=== PATIENT | male | born 1990 | race Caucasian/White ===

== ENCOUNTER 2017-03-19 20:22 | Emergency (ER) | payer OTHER ==
[2017-03-19 20:31] VITALS: BP 131/86; TEMP 98.2; BMI 22.4
--- NOTE | 2017-03-19 20:56 | ED.PDOC ---
General ED Provider: Dr. DARYA HUTTON Chief Complaint: Back Pain Stated Complaint: Lower left back pain. Goes down left leg. No spacific injury but has been doing a lot of lifting and bending. Time Seen by Physician: 20:50 Mode of Arrival: Walk-In Information Source: Patient Exam Limitations: No limitations Nursing and Triage Documentation Reviewed and Agree: Yes Musculoskeletal Complaint Exam - Back Pain Complaint/Exam Mechanism of Injury: Reports: No known trauma Onset/Duration: 1 day Symptoms Are: Still present Timing: Constant Episodes Lasting: Seconds Initial Severity: Severe Current Severity: Severe Location: Reports: Discrete Character: Reports: Aching, Throbbing Aggravating: Reports: Movements, Lifting, Bending, Walking Related History: Reports: Occupational injury TAD Risk Factors: Reports: None AAA Risk Factors: Reports: None Cauda Equina Risk Factors: Reports: None Epidural Abcess Risk Factors: Reports: None Related Surgical History: Reports: None Focal Tenderness: Yes (left lower back) Paraspinal Muscle Tenderness: Yes Paraspinal Muscle Spasm: Yes Scoliosis: No Lordosis: No Kyphosis: No SLR Test: Left Positive Hip Motion Testing Pain: Right Negative, Left Negative Focal Weakness: Present: None Focal Sensory Loss: Present: None Gait: Present: Abnormal Back Picture: 1 - pain 2 - radiation of pain Differential Diagnoses: Fracture, Herniated Disk, Strain, Sprain Review of Systems - Review Of Systems Constitutional: Reports: No symptoms Eyes: Reports: No symptoms Ears, Nose, Mouth, Throat: Reports: No symptoms Respiratory: Reports: No symptoms Cardiac: Reports: No symptoms GI: Reports: No symptoms : Reports: No symptoms Musculoskeletal: Reports: Back pain, Muscle pain, Muscle stiffness Skin: Reports: No symptoms Neurological: Reports: Anxiety Endocrine: Reports: No symptoms Hematologic/Lymphatic: Reports: No symptoms All Other Systems: Reviewed and Negative Past Medical History - Past Medical History Previously Healthy: Yes Endocrine: Reports: None Cardiovascular: Reports: None Respiratory: Reports: None Hematological: Reports: None Gastrointestinal: Reports: None Genitourinary: Reports: None Neuro/Psych: Reports: None Musculoskeletal: Reports: Back Pain, Joint Pain Cancer: Reports: None - Surgical History General Surgical History: Reports: None - Family History Family History: Reports: None - Social History Smoking Status: Current every day smoker, Heavy tobacco smoker Hx Substance Use: No Alcohol Screening: Occasionally - Immunizations Tetanus Shot up to Date: Yes Physical Exam - Physical Exam Appearance: Ill-appearing, Well-nourished Ill-appearing: Mild Pain Distress: Severe Neck: Supple Respiratory: Airway patent, Breath sounds clear, Breath sounds equal, Respirations nonlabored Cardiovascular: RRR, Pulses normal, No rub, No murmur GI/: Soft, Nontender, No masses Musculoskeletal: No edema, Limited ROM (of the back and left leg extension ) Neurological: Sensation intact, Reflexes intact, Alert Psychiatric: Anxious Interpretation - Radiology Interpretation Radiology Interpretation By: ED Physician Radiology Results: Negative (for fracture but loss of lumbar lordosis.) Exam Interpreted: Other (LS spine ) Re-Evaluation - Re-Evaluation Time of Re-Evaluation: 21:38 Status: Improved Pain Level: much better Critical Care Note - Critical Care Note Total Time (mins): 0 Course - Course Orders, Labs, Meds: Orders Category Date Time Status Meperidine HCl/Pf [Demerol 50 mg/ml Syringe] MEDS 03/19/17 20:58 Discontinued 50 mg IM ONCE STA Promethazine HCl [Phenergan 25 mg/ml Vial] MEDS 03/19/17 20:58 Discontinued 25 mg IM ONCE STA LUMBAR SPINE, 2 OR 3 VIEWS Stat RADS 03/19/17 20:58 Taken Medications Discontinued Medications Generic Name Dose Route Start Last Admin Trade Name Freq PRN Reason Stop Dose Admin Meperidine HCl 50 mg 03/19/17 20:58 03/19/17 21:08 Demerol 50 Mg/Ml Syringe IM 03/19/17 20:59 50 mg ONCE STA Administration Promethazine HCl 25 mg 03/19/17 20:58 03/19/17 21:05 Phenergan 25 Mg/Ml Vial IM 03/19/17 20:59 25 mg ONCE STA Administration Vital Signs: Temp Pulse Resp BP Pulse Ox 03/19/17 20:23 98.2 F 64 16 131/86 98 Departure - Departure Time of Disposition: 21:30 Disposition: HOME SELF-CARE Discharge Problem: Backache Instructions: Lower Back Exercises (ED) Condition: Fair Pt referred to PMD for follow-up: Yes Additional Instructions: Take pain Medications as prescribed Follow up with PCP in 3 days Rest for 3 days Prescriptions: Hydrocodone/Acetaminophen [[place] 5-325 Tablet] 1 tab PO Q6HR PRN #14 tablet PRN Reason: PAIN Cyclobenzaprine HCl [Flexeril] 5 mg PO TID PRN #14 tablet PRN Reason: Spasms Ibuprofen [Motrin] 600 mg PO Q6H PRN #30 tablet PRN Reason: Analgesia Allergies/Adverse Reactions: Allergies Iodinated Contrast- Oral and IV Dye [Iodinated Contrast Media - IV Dye] Adverse Reaction (Verified 03/19/17 20:30) Hives Home Medications: Ambulatory Orders 1 [No Reported Medications] 0 mg PO DAILY 01/21/13 Cyclobenzaprine HCl [Flexeril] 5 mg PO TID PRN #14 tablet 03/19/17 Hydrocodone/Acetaminophen [[place] 5-325 Tablet] 1 tab PO Q6HR PRN #14 tablet Ibuprofen [Motrin] 600 mg PO Q6H PRN #30 tablet 03/19/17 Disposition Discussed With: Patient, Family
[2017-03-19] MEDS ORDERED: DEMEROL 50 MG/ML SYRINGE IM STA (20:58)
[2017-03-19] MEDS ORDERED: PHENERGAN 25 MG/ML VIAL IM STA (20:58)
--- NOTE | 2017-03-20 11:25 | DI ---
EXAM: Lumbar spine three view. HISTORY: Back pain with radiculopathy. Comparison: 08/24/2010. Findings: There is normal appearing AP lumbar spinal alignment seen. There is approximately 4 mm grade 1 ante rolisthesis of L5 on S1 present. There is a lucency seen in the distribution of the L5 pars interar ticularis. There is mild intervertebral disc height loss at the L5 - S1 level suggestive of mild de generative disc disease. Impression: 1. Approximately 4 mm grade 1 anterolisthesis of L5 on S1. 2. Lucency seen in the region the L5 pars interarticularis. Recommend correlation with either CT chza mbar spine or oblique views of the lumbar spine follow-up to better assess for pars defect as the ca use for this finding. 3. Mild degenerative disc disease seen at the L5 - S1 level.
== END 2017-03-19 21:38 | disposition home or self-care (01) ==
LOC: ED 20:22
DX: M54.5 Low back pain (principal); F17.210 Nicotine dependence, cigarettes, uncomplicated
CPT/HCPCS: 96372; 99282

== ENCOUNTER 2017-05-04 13:19 | Emergency (ER) ==
[2017-05-04 13:22] VITALS: BP 132/76; TEMP 96.6; BMI 20.2
--- NOTE | 2017-05-04 15:03 | ED.PDOC ---
General ED Provider: Dr. REBECCA MEDRANO Chief Complaint: Respiratory Complaint Stated Complaint: Woke up with pain with breathing through out both lungs. Minimal, [employer] cough also hurts. No SOB. No wheezing. Zahl fine yesterday. Time Seen by Physician: 15:04 Mode of Arrival: Walk-In Information Source: Patient Exam Limitations: No limitations Nursing and Triage Documentation Reviewed and Agree: Yes Respiratory Complaint Exam - Respiratory Complaint/Exam Onset/Duration: this AM upon awakening Symptoms Are: Still present Timing: Constant Initial Severity: Moderate Current Severity: Moderate Location: Chest Character: Reports: Non-productive cough Aggravating: Reports: Deep breaths Alleviating: Reports: None Associated Signs and Symptoms: Reports: Pleuritic chest pain History of Healthcare-Acquired Pneumonia: No Related Surgical History: Reports: None Pulmonary Embolism Risk Factors: Smoking Cardiac Risk Factors: Reports: Smoking Pseudomonas Risk Factors: Reports: None Tuberculosis Risk Factors: Reports: Smoking Status Asthmaticus Risk Factors: Reports: None Home Oxygen Use: No Recent Stress Test: No Recent Echo/LV Function: No Current Antibiotic Use: No Current Asthma Medication Use: No Respiratory Distress: None Inadequate Respiratory Effort: No Dysphagia Present: No Stridor Present: No JVD Present: No Accessory Muscle Use: No Retractions: Not Present Diminished Breath Sounds: No Sinus Tenderness: None Grunting Respirations: No Kussmaul Respirations: No Differential Diagnoses: Pneumonia, Bronchitis, Lower Resp. Infection, Other ( Pleurisy) Quality Indicators For Pneumonia: SpO2 assessed, Vital signs, Mental status assessed Review of Systems - Review Of Systems Constitutional: Reports: No symptoms Eyes: Reports: No symptoms Ears, Nose, Mouth, Throat: Reports: No symptoms Respiratory: Reports: Cough, Other (pleuritic chest pain with breathing, worse with deep breath or cough) Cardiac: Reports: No symptoms GI: Reports: No symptoms : Reports: No symptoms Musculoskeletal: Reports: No symptoms Skin: Reports: No symptoms Neurological: Reports: No symptoms All Other Systems: Reviewed and Negative Past Medical History - Past Medical History Previously Healthy: Yes Endocrine: Reports: None Cardiovascular: Reports: None Respiratory: Reports: None Hematological: Reports: None Gastrointestinal: Reports: None Genitourinary: Reports: None Neuro/Psych: Reports: None Musculoskeletal: Reports: Back Pain, Joint Pain Cancer: Reports: None - Surgical History General Surgical History: Reports: None - Family History Family History: Reports: None - Social History Smoking Status: Current every day smoker, Heavy tobacco smoker Amount Smokes or Chewing Tobacco Used Daily: 1 PPD Smoking Cessation Counseling Time: > 3 min - 10 min Hx Substance Use: No Alcohol Screening: Heavy Lives: Alone, With family - Immunizations Tetanus Shot up to Date: No Influenza Vaccine within 12 Months: No Pneumococcal Vaccine up to Date: No Physical Exam - Physical Exam Appearance: Well-appearing, No pain distress, Well-nourished Ill-appearing: None Pain Distress: None ENT: Ears normal, Nose normal, Oropharynx normal Neck: Supple Respiratory: Airway patent, Breath sounds clear, Breath sounds equal, Respirations nonlabored Cardiovascular: RRR, Pulses normal, No rub, No murmur GI/: Soft, Nontender, No masses, Bowel sounds normal, No Organomegaly Musculoskeletal: Normal strength, ROM intact, No edema, No calf tenderness Skin: Warm, Dry, Normal color Neurological: Sensation intact, Motor intact, Reflexes intact, Cranial nerves intact, Alert, Oriented Critical Care Note - Critical Care Note Total Time (mins): 0 Course - Course Vital Signs: Temp Pulse Resp BP Pulse Ox 05/04/17 13:19 96.6 F L 70 18 132/76 98 Departure - Departure Time of Disposition: 15:26 Disposition: HOME SELF-CARE Discharge Problem: Pleurisy, Bronchitis Discharge Problem: (Ruled Out): The administrative codes within the [employer] content you are accessing may have as of 05/02/2017. Please contact your IT Dept/Help Desk and request the latest Regulatory release be installed. IT Dept/Help Desk- Please refer to our FAQ page ([email or web address]) or contact [facility] Support at [email or web address] Instructions: Acute Bronchitis (ED), Pleurisy (ED) Condition: Good Pt referred to PMD for follow-up: No (If no better in 3 days, see doctor) Allergies/Adverse Reactions: Allergies Iodinated Contrast- Oral and IV Dye [Iodinated Contrast Media - IV Dye] Adverse Reaction (Verified 05/04/17 13:22) Hives Home Medications: Ambulatory Orders 1 [No Reported Medications] 0 mg PO DAILY 01/21/13 Acetaminophen with Codeine [Tylenol #3 Tab] 1 tab PO Q4H PRN #20 tablet Azithromycin [Zithromax] 500 mg PO DAILY #5 tablet 05/04/17 Disposition Discussed With: Patient
== END 2017-05-04 15:33 | disposition home or self-care (01) ==
LOC: ED 13:19
DX: J20.9 Acute bronchitis, unspecified (principal); R09.1 Pleurisy; F17.210 Nicotine dependence, cigarettes, uncomplicated
CPT/HCPCS: 99282

== ENCOUNTER 2017-08-16 20:24 | Outpatient (CLI) ==
[2013-01-21 13:50] VITALS: TEMP 98.9
[2017-08-16 20:37] VITALS: BMI 20.2
== END 2017-08-16 20:25 | disposition critical access hospital (66) ==
LOC: AMBL 20:24
PROVIDERS: ATTEND Emergency Medicine
DX: R10.30 Lower abdominal pain, unspecified (principal); K62.5 Hemorrhage of anus and rectum

== ENCOUNTER 2017-08-16 20:37 | Emergency (ER) ==
[2017-08-16 20:37] VITALS: BMI 20.2
[2017-08-16 20:53] VITALS: TEMP 98.1
--- NOTE | 2017-08-16 20:58 | ED.PDOC ---
General ED Provider: Dr. NIRMALA VAZQUEZ Chief Complaint: Abdominal Pain Stated Complaint: Been hurting since noo, lower abdomen, no nausea or vomiting. has some blood in stools. Time Seen by Physician: 20:56 Mode of Arrival: Ambulance Information Source: Patient Nursing and Triage Documentation Reviewed and Agree: Yes Reviewed sepsis parameters & appropriate labs ordered?: No System Inflammatory Response Syndrome: Not Applicable Sepsis Protocol: For patient's 13 years and over: Temp is 96.8 and below OR 101 and greater Pulse >90 BPM Resp >20/minute Acutely Altered Mental Status Are patient's symptoms suggestive of a new infection, such as: -Pneumonia -Skin, Soft Tissue -Endocarditis -UTI -Bone, Joint Infection -Implantable Device -Acute Abdominal Infection -Wound Infection -Meningitis -Blood Stream Catheter Infection -Unknown GI Complaint Exam - Abdominal Pain Complaint/Exam Onset: Gradual Symptoms Are: Still present Timing: Constant Initial Severity: Moderate Current Severity: Moderate Location of Pain: Suprapubic Character: Reports: Aching, Throbbing Aggravating: Reports: None Alleviating: Reports: None Associated Signs and Symptoms: Denies: Diaphoresis, Fever, Cough, Chest pain, Dizziness, Back pain, Constipation, Blood in stool, Dysuria, Urinary frequency, Decreased urine output, Decreased appetite, Discharge, Nausea, Vomiting, Diarrhea, Decreased activity AAA Risk Factors: Reports: None Cardiac Risk Factors: Reports: None Testicular Torsion Risk Factors: Reports: None Surgical Obstruction Risk Factors: Reports: None Related Surgical History: Reports: None Abdominal Findings: Absent: Pulsatile mass, Abdominal distention, Unequal femoral pulses Differential Diagnoses: Constipation, Pancreatitis, UTI Review of Systems - Review Of Systems Constitutional: Reports: No symptoms Eyes: Reports: No symptoms Ears, Nose, Mouth, Throat: Reports: No symptoms Respiratory: Reports: No symptoms Cardiac: Reports: No symptoms GI: Reports: Abdomen distended, Abdominal pain : Reports: No symptoms Musculoskeletal: Reports: No symptoms Skin: Reports: No symptoms Neurological: Reports: No symptoms Endocrine: Reports: No symptoms Hematologic/Lymphatic: Reports: No symptoms All Other Systems: Reviewed and Negative Past Medical History - Past Medical History Previously Healthy: Yes Endocrine: Reports: None Cardiovascular: Reports: None Respiratory: Reports: None Hematological: Reports: None Gastrointestinal: Reports: None Genitourinary: Reports: None Neuro/Psych: Reports: None Musculoskeletal: Reports: Back Pain, Joint Pain Cancer: Reports: None - Surgical History General Surgical History: Reports: None - Family History Family History: Reports: None - Social History Smoking Status: Current every day smoker, Heavy tobacco smoker Smoking Cessation Counseling Time: > 10 min Hx Substance Use: No (says stopped drinking alcohol 2 weeks ago) Alcohol Screening: None - Immunizations Tetanus Shot up to Date: No (unknown) Influenza Vaccine within 12 Months: No Pneumococcal Vaccine up to Date: No Physical Exam - Physical Exam Appearance: Ill-appearing, Thin Eyes: ANIVAL, EOMI, Conjunctiva clear ENT: Ears normal, Nose normal, Oropharynx normal Respiratory: Airway patent, Breath sounds clear, Breath sounds equal, Respirations nonlabored Cardiovascular: RRR, Pulses normal, No rub, No murmur GI/: Soft, Tender Musculoskeletal: Normal strength, ROM intact, No edema, No calf tenderness Skin: Warm, Dry, Normal color Neurological: Sensation intact, Motor intact, Reflexes intact, Cranial nerves intact, Alert, Oriented Psychiatric: Affect appropriate, Mood appropriate Interpretation - Radiology Interpretation Radiology Interpretation By: Radiologist Radiology Results: Positive Exam Interpreted: CT Scan Critical Care Note - Critical Care Note Total Time (mins): 20 Course - Course Hematology/Chemistry: 08/16/17 21:00 08/16/17 21:00 Orders, Labs, Meds: Lab Review 08/16/17 08/16/17 21:00 21:00 WBC 11.42 H RBC 5.16 Hgb 15.0 Hct 43.2 MCV 83.7 MCH 29.1 MCHC 34.7 RDW Coeff of Prosper 11.5 L Plt Count 293 Immature Gran % (Auto) 0.4 Neut % (Auto) 78.5 Lymph % (Auto) 11.5 [place] % (Auto) 7.7 Eos % (Auto) 1.6 Baso % (Auto) 0.3 Immature Gran # (Auto) 0.0 Neut # 9.0 H Lymph # 1.3 [place] # 0.9 Eos # 0.2 Baso # 0.0 Sodium 137 Potassium 3.9 Chloride 102 Carbon Dioxide 28 Anion Gap 10.9 BUN 9 Creatinine 1.00 Estimated GFR (MDRD) 90.00 BUN/Creatinine Ratio 9.00 Glucose 112 H Calcium 9.9 Total Bilirubin 1.1 AST 16 ALT 12 Alkaline Phosphatase 80 Total Protein 7.3 Albumin 4.1 Globulin 3.2 Albumin/Globulin Ratio 1.28 Amylase 33 Lipase 7 L Orders Category Date Time Status AMYLASE Stat LAB 08/16/17 21:00 Completed CBC W/ AUTO DIFF Stat LAB 08/16/17 21:00 Completed COMPREHENSIVE METABOLIC PANEL Stat LAB 08/16/17 21:00 Completed LIPASE Stat LAB 08/16/17 21:00 Completed UA [URINALYSIS C & S IF INDICATED] Stat LAB 08/16/17 20:[address] ABDOMEN/PELVIS WO CONTRAST Stat RADS 08/16/17 20:55 Completed Vital Signs: Temp Pulse Resp BP Pulse Ox 08/16/17 20:45 98.1 F 70 24 134/85 100 Departure - Departure Time of Disposition: 22:01 Disposition: HOME SELF-CARE Discharge Problem: Abdominal pain, Gastroenteritis Instructions: Gastroenteritis (ED) Condition: Stable Pt referred to PMD for follow-up: Yes IPMP verified?: No Additional Instructions: INCREASE HYDRATION SOFT DIET F/U WITH PMD Prescriptions: Ondansetron HCl [Zofran] 4 mg PO TID #14 tablet Polyethylene Glycol 3350 [Miralax] 17 gm PO DAILY #30 powd.pack Allergies/Adverse Reactions: Allergies Iodinated Contrast- Oral and IV Dye [Iodinated Contrast Media - IV Dye] Adverse Reaction (Verified 08/16/17 20:52) Hives Home Medications: Ambulatory Orders Ondansetron HCl [Zofran] 4 mg PO TID #14 tablet 08/16/17 Polyethylene Glycol 3350 [Miralax] 17 gm PO DAILY #30 powd.pack 08/16/17 Disposition Discussed With: Patient, Family
--- NOTE | 2017-08-16 21:55 | CT ---
EXAM: CT of the abdomen pelvis without contrast History: Lower abdominal pain. Technique: Multiplanar CT images through the abdomen pelvis were obtained without the administration of IV contrast Comparison: CT abdomen pelvis 07/17/2014 Technique: Multiplanar CT images through the abdomen pelvis were obtained without the administration of IV contrast Findings: Lung bases are clear. No acute osseous abnormalities. Bilateral L5 pars defects with no spondylolisthesis. Stomach is moderately distended with fluid and debris. Mildly dilated fluid-fille d loops of small bowel. The appendix is not clearly identified. There are no secondary signs of fady endicitis. No peripancreatic inflammation. Adrenal glands are unremarkable. No discrete gallstones identified by CT. No focal liver or splenic lesions. No renal stones and no hydronephrosis. No free air and no ascite s. Bladder is not well distended but there is no bladder wall thickening. No perirectal inflammatio n. Impression: Mild gastroenteritis. No bowel obstruction. Stomach is moderately distended with fluid and debris.
[2017-08-16 22:19] VITALS: BP 133/77
== END 2017-08-16 22:20 | disposition home or self-care (01) ==
LOC: ED 20:37
DX: K52.9 Noninfective gastroenteritis and colitis, unspecified (principal); F17.210 Nicotine dependence, cigarettes, uncomplicated
CPT/HCPCS: 36415; 80053; 82150; 83690; 85025; 99284

== ENCOUNTER 2018-04-02 15:55 | Emergency (ER) ==
[2018-04-02 16:01] VITALS: BP 123/82; TEMP 97.9; BMI 20.9
--- NOTE | 2018-04-02 16:13 | ED.PDOC ---
General ED Provider: Dr. DARYA HUTTON Chief Complaint: Hand Pain/Injury Stated Complaint: Patient sustained a crush injury to the left hand on the 2nd nuckle with a hammer. Has a laceration with some bleeding that is controlled. Time Seen by Physician: 16:10 Mode of Arrival: Walk-In Information Source: Patient Nursing and Triage Documentation Reviewed and Agree: Yes Does patient meet sepsis criteria?: No System Inflammatory Response Syndrome: Not Applicable Sepsis Protocol: For patient's 13 years and over: Temp is 96.8 and below OR 101 and greater Pulse >90 BPM Resp >20/minute Acutely Altered Mental Status Are patient's symptoms suggestive of a new infection, such as: -Pneumonia -Skin, Soft Tissue -Endocarditis -UTI -Bone, Joint Infection -Implantable Device -Acute Abdominal Infection -Wound Infection -Meningitis -Blood Stream Catheter Infection -Unknown Musculoskeletal Complaint Exam - Hand/Wrist Complaint/Exam Location of Pain: Reports: Left, Digit #2 (base of the finger ) Mechanism of Injury: Reports: Trauma Onset/Duration: just prior to arrival. Symptoms Are: Still present Onset of Pain: Reports: Immediate, Post accident Initial Severity: Severe Current Severity: Moderate Location: Reports: Diffuse Character: Reports: Aching, Throbbing Aggravating: Reports: Movement Associated Signs and Symptoms: Reports: Swelling Dominant Hand: Right Hand/Wrist Findings: Present: Swelling, Laceration, Erythema Tenderness: Present: Metacarpal Hand Picture: 1 - 1.5 cm laceration Differential Diagnoses: Other (Laceration ) Review of Systems - Review Of Systems Constitutional: Reports: No symptoms Eyes: Reports: No symptoms Ears, Nose, Mouth, Throat: Reports: No symptoms Respiratory: Reports: No symptoms Cardiac: Reports: No symptoms GI: Reports: No symptoms : Reports: No symptoms Musculoskeletal: Reports: Joint pain, Joint swelling Skin: Reports: Bruising Neurological: Reports: Anxiety Endocrine: Reports: No symptoms Hematologic/Lymphatic: Reports: No symptoms All Other Systems: Reviewed and Negative Past Medical History - Past Medical History Previously Healthy: Yes Endocrine: Reports: None Cardiovascular: Reports: None Respiratory: Reports: None Hematological: Reports: None Gastrointestinal: Reports: None Genitourinary: Reports: None Neuro/Psych: Reports: None Musculoskeletal: Reports: Back Pain, Joint Pain Cancer: Reports: None - Surgical History General Surgical History: Reports: None - Family History Family History: Reports: None - Social History Smoking Status: Current some day smoker Hx Substance Use: No Alcohol Screening: None - Immunizations Tetanus Shot up to Date: No Influenza Vaccine within 12 Months: No Pneumococcal Vaccine up to Date: No Physical Exam - Physical Exam Appearance: Well-appearing, No pain distress, Well-nourished Eyes: ANIVAL, EOMI, Conjunctiva clear ENT: Ears normal, Nose normal, Oropharynx normal Respiratory: Airway patent, Breath sounds clear, Breath sounds equal, Respirations nonlabored Cardiovascular: RRR, Pulses normal, No rub, No murmur GI/: Soft, Nontender, No masses, Bowel sounds normal, No Organomegaly Musculoskeletal: Normal strength, ROM intact, No edema, No calf tenderness Skin: Warm, Dry (left hand laceration ) Neurological: Sensation intact, Motor intact, Reflexes intact, Cranial nerves intact, Alert, Oriented Psychiatric: Affect appropriate, Mood appropriate Procedures - Laceration/Wound Repair left hand 2nd metacarpel area Wound Description: Linear Wound Length (cm): 1.5 cm Wound Width: 0.2 Wound Depth: 0.3 Wound Explored: Clean Wound Irrigated: No Wound Prep: Hibiclens Anesthesia: Lidocaine Wound Repaired With: Sutures Suture Size and Type: 4.0 ethlone Number of Sutures: 8 (running ) Layer Closure?: No Sterile Dressing Applied?: Yes Splint Applied?: No Sling Applied?: No Progress: tolerated procedure well Critical Care Note - Critical Care Note Total Time (mins): 0 Course - Course Orders, Labs, Meds: Orders Category Date Time Status Diphth,Pertuss(Acell),Tet Vac [Boostrix] MEDS 04/02/18 16:59 Discontinued 0.5 ml IM .ONCE ONE Lidocaine HCl/Pf [Lidocaine HCl 1% Sdv] MEDS 04/02/18 16:18 Discontinued 5 ml SUBCUT ONCE STA HAND, LEFT 3 VIEWS Stat RADS 04/02/18 16:12 Completed Medications Discontinued Medications Generic Name Dose Route Start Last Admin Trade Name Freq PRN Reason Stop Dose Admin Diphtheria/Pertussis/Tetanus Vacc 0.5 ml 04/02/18 16:59 04/02/18 17:12 Boostrix IM 04/02/18 17:00 0.5 ml .ONCE ONE Administration Lidocaine HCl 5 ml 04/02/18 16:18 04/02/18 16:39 Lidocaine Hcl 1% Sdv SUBCUT 04/02/18 16:19 5 ml ONCE STA Administration Vital Signs: Temp Pulse Resp BP Pulse Ox 04/02/18 15:55 97.9 F 96 H 16 123/82 98 Departure - Departure Time of Disposition: 16:57 Disposition: HOME SELF-CARE Discharge Problem: Laceration of left hand without complication, excluding fingers Qualifiers: Encounter type: initial encounter Qualified Code(s): S61.412A - Laceration without foreign body of left hand, initial encounter Instructions: Laceration (ED), Tdap and Td Vaccines for Adults (ED) Condition: Stable Pt referred to PMD for follow-up: Yes IPMP verified?: No Additional Instructions: keep wound clean and dry Follow up with PCP in 10 days to have sutures removed Return if you see signs of infection such as pain, swelling puss. Allergies/Adverse Reactions: Allergies Iodinated Contrast- Oral and IV Dye [Iodinated Contrast Media - IV Dye] Adverse Reaction (Verified 04/02/18 16:03) Hives Home Medications: Ambulatory Orders 1 [No Reported Medications] 04/02/18 Disposition Discussed With: Patient, Family
[2018-04-02] MEDS ORDERED: LIDOCAINE HCL 1% SDV SUBCUT STA (16:18)
--- NOTE | 2018-04-02 16:36 | DI ---
Exam: Three-view left hand. Date: 04/02/2018. Comparison: 06/12/2014. HISTORY: Crush injury. FINDINGS: The soft tissues are within normal limits. The mineralization is normal. The bones are i ntact and the joint spaces are preserved. Impression: No acute osseous abnormality in the left hand.
[2018-04-02] MEDS ORDERED: BOOSTRIX IM ONE (16:59)
== END 2018-04-02 17:25 | disposition home or self-care (01) ==
LOC: ED 15:55
DX: S61.412A Laceration without foreign body of left hand, initial encounter (principal); W22.8XXA Striking against or struck by other objects, initial encounter; F17.210 Nicotine dependence, cigarettes, uncomplicated
CPT/HCPCS: 90471; 90715; 99283